=== PATIENT | female | born 1995 | race Caucasian/White ===

== ENCOUNTER 2016-08-31 13:43 | Emergency (ER) | payer OTHER ==
[~2016-08-31] VITALS: Ht 157.5 cm; Wt 54.4 kg
[2016-08-31 13:57] VITALS: BP 101/70
--- NOTE | 2016-08-31 14:20 | NUR ---
Patient ambulated to bed 7. RN evaluating patient at bedside.
--- NOTE | 2016-08-31 14:20 | NUR ---
PATIENT PRESENTS TO ED WITH C/O UPPER BACK PAIN X 1 WK ---WORSEN WITH HEAVY LIFTING --AMBULATORY WITH STEADY GAIT---DENIES INCONTINENCE; 08/29/2016 [facility] RX [facility]CLE RELAXOR; DENIES N/V/D; SKIN IS PINK/WARM/DRY; AAOX4 WITH EVEN AND STEADY GAIT; LUNGS CLEAR BL; HR EVEN AND REGULAR; PT DENIES ANY FEVER, CP, SOB, OR COUGH AT THIS TIME; PATIENT STATES UPPER BACK PAIN OF 7/10 AT THIS TIME; VSS; PATIENT POSITIONED FOR COMFORT; HOB ELEVATED; BEDRAILS UP X2; BED DOWN. ER MD MADE AWARE OF PT STATUS.
--- NOTE | 2016-08-31 14:25 | NUR ---
Dr. Santana evaluating patient at bedside.
[2016-08-31 14:56] VITALS: BP 107/69
== END 2016-08-31 14:56 | disposition home or self-care (01) ==
LOC: MED 13:43
DX: S23.3XXA Sprain of ligaments of thoracic spine, initial encounter (principal); X58.XXXA Exposure to other specified factors, initial encounter; Y93.89 Activity, other specified; Y92.89 Other specified places as the place of occurrence of the external cause; Y99.8 Other external cause status